=== PATIENT | male | born 1965 | race Caucasian/White ===

== ENCOUNTER 2018-06-02 08:36 | Outpatient (CLI) | payer BC ==
--- NOTE | 2018-06-02 09:32 | RAD ---
THREE VIEWS CERVICAL SPINE SERIES: COMPARISON: 02/29/2016. INDICATION: Cervicalgia, neck pain. FINDINGS: Lateral views of the cervical spine, neutral, flexion, and extension performed which reveal ACDF of t he C4-5 level. Hardware alignment is grossly stable. There is no significant translational motion i dentified with flexion and extension positioning. There is straightening of the normal cervical curv ature. Exam is otherwise stable. IMPRESSION: No abnormal translational motion identified. POS: GILBERTO
== END 2018-06-02 08:37 | disposition home or self-care (01) ==
LOC: TBSIIMAG 08:36
PROVIDERS: ATTEND Neurological Surgery
DX: M54.2 Cervicalgia (principal)
CPT/HCPCS: 72040

== ENCOUNTER 2018-06-12 10:13 | Outpatient (CLI) | payer BC ==
--- NOTE | 2018-06-12 12:16 | MRI ---
FMRI of cervical spine: 06/12/2018 COMPARISON: 08/22/2015 HISTORY: Cervical radiculopathy TECHNIQUE: Multiplanar multisequence MR imaging of cervical spine without contrast FINDINGS: Artifact associated with anterior discectomy and fusion noted at C4-5, limiting detailed as sessment at this intervertebral disc level. Mild anterolisthesis of C2 on C3 measures 3-4 mm. There i s straightening of the normal cervical lordosis. No focal area of abnormal signal intensity is noted within the prevertebral region. STIR imaging demonstrates increased T2 signal centered at the facet j oint on the right at C3-4, evidence of nonspecific edematous change. Stable moderate degenerative change at the atlantoaxial interspace noted. C2-3: Disc desiccation present. Bilateral facet and uncovertebral osteophyte formation, left greater than right. Moderate bilateral neural foraminal stenosis. C3-4: There is disc desiccation. Mild bilateral facet and uncovertebral osteophyte formation. No sign ificant central canal stenosis. Mild bilateral neural foraminal stenosis. C4-5: No central canal stenosis. Bilateral facet and uncovertebral osteophyte formation, left greater than right. Mild right and moderate left neural foraminal stenosis. C5-6: Disc desiccation. No central canal or neural foraminal stenosis. C6-7: There is mild disc desiccation and disc space narrowing with mild disc bulge. There is a superi mposed small left paracentral disc protrusion. This causes a mild degree of central canal stenosis to the left of midline. Superimposed facet and uncovertebral osteophyte formation on the left leads to a moderate degree of left neural foraminal stenosis. No significant right neural foraminal stenosis. The small left paracentral disc protrusion is new when compared to the prior examination. C7-T1: Disc desiccation and disc space narrowing with minimal disc bulge and no associated central ca nal stenosis. Facet and uncovertebral osteophyte formation noted bilaterally, left greater than right , with mild right and mild/moderate left neural foraminal stenosis. Small caliber syrinx noted within the cervical cord at the C6 and C7 levels, not significantly change d when compared to the prior examination. IMPRESSION: Multilevel degenerative change within the cervical spine as detailed above. This includes a small new left paracentral disc protrusion at C6-7 as detailed above.
== END 2018-06-12 10:14 | disposition home or self-care (01) ==
LOC: TBSIIMAG 10:13
PROVIDERS: ATTEND Neurological Surgery
DX: M47.22 Other spondylosis with radiculopathy, cervical region (principal); M50.123 Cervical disc disorder at C6-C7 level with radiculopathy
CPT/HCPCS: 72141

== ENCOUNTER 2018-10-15 05:47 | Outpatient (CLI) | payer BC ==
[2018-10-15 10:22] LABS: Hemoglobin 14.6 g/dL (14.0-18.0); Mean Corpuscular HGB CONC 36.4 g/dL (32.0-36.0); Mean Corpuscular Hemoglobin 30.1 pg (27.0-31.0); Mean Corpuscular Volume 82.8 fL (78.0-98.0); Mean Platelet Volume 7.3 fL (7.4-10.4); Platelet Count 232 thou/uL (130-400); RBC Distribution Width 11.2 % (11.5-14.5); Red Blood Cell (RBC) Count 4.85 mill/uL (4.70-6.10); White Blood Cell (WBC) Count 6.5 thou/uL (4.8-10.8)
[2018-10-15 11:09] LABS: Anion Gap 15 mmol/L (10-20); BUN (Urea Nitrogen) 25 mg/dL (8.4-25.7); Calc. Creatinine Clearance 0 mL/min (70-130); Calcium 10.5 mg/dL (7.8-10.44); Carbon Dioxide 26 mmol/L (22-29); Chloride 95 mmol/L (98-107); Estimated GFR-MDRD 49; Glucose 266 mg/dL (70-105); Potassium 4.6 mmol/L (3.5-5.1); Sodium 131 mmol/L (136-145)
== END 2018-10-15 05:48 | disposition home or self-care (01) ==
LOC: LABBT 05:47
PROVIDERS: ATTEND Neurological Surgery
DX: Z01.818 Encounter for other preprocedural examination (principal); M54.12 Radiculopathy, cervical region
CPT/HCPCS: 80048; 85027; 93005; 93010

== ENCOUNTER 2018-10-19 09:08 | Day surgery (SDC) | payer BC ==
[2018-10-15 09:35] VITALS: BMI 33.2
[2018-10-19] MEDS ORDERED: Bacitracin Zinc Ointment 30 gm TUBE ONE (10:09)
[2018-10-19] MEDS ORDERED: Sodium Chloride 0.9% 10 ML ONE (10:09)
[2018-10-19] MEDS ORDERED: ceFAZolin Sodium (SDC) 2 GM/100 ML BAG ONE (10:28)
[2018-10-19] MEDS ORDERED: Fentanyl 100 MCG/2 ML VIAL ONE ×3 (10:57→13:01)
--- NOTE | 2018-10-19 14:10 | OP ---
DATE OF PROCEDURE: 10/19/2018 CLERK ENTRY LEVEL: Rodriguez. PROCEDURE PERFORMED: Posterior C4-C5 decompression and lateral mass screw instrumentation, demineralized bone matrix with local morselized autograft. DESCRIPTION OF PROCEDURE: The patient was brought to the operating room and intubated. He was rolled in the prone position on gel-filled chest rolls. His head was fixed in a Lindsay assistant head cashier in a neutral position. An incision was made exposing C4-C5 and the level was confirmed by x-ray. We performed modest bilateral C4-C5 foraminotomies. We next placed lateral mass screws at right C4 and right C5 using lateral fluoroscopic guidance. These screws were connected by a jessica, secured by nuts, which were final tightened. The wound was then extensively irrigated. MAC hemostasis was secured. A combination of demineralized bone matrix and local morselized autograft was laid over the left lamina posterolateral surfaces for the purpose of arthrodesis. Vancomycin powder was applied, and the wound was then closed in anatomic layers. Job ID: [id number]
[2018-10-19] MEDS ORDERED: HYDROcodone/Acetaminophen 5/325 mg Tablet ONE (15:40)
== END 2018-10-19 16:20 | disposition home or self-care (01) ==
LOC: SDC 09:08
PROVIDERS: ATTEND Neurological Surgery
PROC: 0RG10AJ Fusion of Cervical Vertebral Joint with Interbody Fusion Device, Posterior Approach, Anterior Column, Open Approach (ICD-10-PCS; principal; 2018-10-19)
DX: M54.12 Radiculopathy, cervical region (principal); E11.9 Type 2 diabetes mellitus without complications; I10 Essential (primary) hypertension; E78.5 Hyperlipidemia, unspecified; Z79.82 Long term (current) use of aspirin; Z79.84 Long term (current) use of oral hypoglycemic drugs; Z79.899 Other long term (current) drug therapy; Z88.0 Allergy status to penicillin; Z98.1 Arthrodesis status
CPT/HCPCS: 76000; C1713; C1768; J0131; J0690; J3010; J3370; J3490

== ENCOUNTER 2018-11-03 10:18 | Outpatient (CLI) | payer BC ==
--- NOTE | 2018-11-03 11:53 | RAD ---
XR Cerv Sp Ap Lat STANDARD History: M [age] cervical radiculopathy Comparison: Cervical spine radiographs May 2018 Findings: New right unilateral posterior spinal fusion hardware at C4-C5. ACDF and discectomy change is similar at C4-C5. No hardware complication. Impression: Satisfactory postoperative appearance posterior spinal fusion hardware.
== END 2018-11-03 10:19 | disposition home or self-care (01) ==
LOC: TBSIIMAG 10:18
PROVIDERS: ATTEND Neurological Surgery
DX: M54.12 Radiculopathy, cervical region (principal); Z98.1 Arthrodesis status
CPT/HCPCS: 72040

== ENCOUNTER 2018-12-24 12:38 | Outpatient (CLI) | payer BC ==
--- NOTE | 2018-12-24 13:53 | RAD ---
CERVICAL SPINE SERIES 3 VIEWS: Date: 12/24/18 HISTORY: Follow-up surgery. COMPARISON: 11/03/18 study. FINDINGS: Anterior cervical fusion with placement of plate and screws at the C4-5 level are again noted. Cold Roll Inspector ior facet screws on the right are also seen. IMPRESSION: Stable postop change. POS: TPC
== END 2018-12-24 12:39 | disposition home or self-care (01) ==
LOC: TBSIIMAG 12:38
PROVIDERS: ATTEND Neurological Surgery
DX: M54.2 Cervicalgia (principal); Z98.890 Other specified postprocedural states
CPT/HCPCS: 72040

== ENCOUNTER 2019-03-23 12:43 | Outpatient (CLI) | payer BC ==
--- NOTE | 2019-03-23 13:46 | RAD ---
3 VIEWS CERVICAL SPINE: Date: 03/23/2019 COMPARISON: None. HISTORY: Numbness of the neck and shoulders, prior surgery. FINDINGS: Open-mouth odontoid view demonstrates normal appearing dens and C1-2 articulation. Anterior diskectom y and fusion hardware is present at C4-5. Posterior fusion hardware noted at the C4-5 level on the ri ght, which includes pedicle screws and vertically oriented interlocking jessica. There is bilateral facet and uncovertebral osteophyte formation within the mid cervical spine. No significant prevertebral so ft tissue swelling. Mild anterolisthesis noted at C2-3 measuring 4.0 mm and at C3-4 measuring 3.0 mm. Mild disc space narrowing and anterior osteophyte formation at C5-6 and C6-7. IMPRESSION: Postoperative and degenerative change within the cervical spine as above. POS: GILBERTO
== END 2019-03-23 12:44 | disposition home or self-care (01) ==
LOC: TBSIIMAG 12:43
PROVIDERS: ATTEND Neurological Surgery
DX: M54.2 Cervicalgia (principal); M47.812 Spondylosis without myelopathy or radiculopathy, cervical region; Z98.890 Other specified postprocedural states
CPT/HCPCS: 72040

== ENCOUNTER 2020-11-07 10:31 | Outpatient (CLI) | payer BC | END 2020-11-07 10:32 | disposition home or self-care (01) | LOC: TBSIIMAG 10:31 | PROVIDERS: ATTEND Neurological Surgery | DX: M51.16 Intervertebral disc disorders with radiculopathy, lumbar region (principal); M51.87 Other intervertebral disc disorders, lumbosacral region | CPT/HCPCS: 72148 ==